=== PATIENT | male | born 1965 | race Caucasian/White ===

== ENCOUNTER 2019-07-28 08:13 | Emergency (ER) | payer MEDICAID ==
[~2019-07-28] VITALS: Ht 152.4 cm; Wt 80.0 kg
[2019-07-28 08:30] VITALS: BP 108/90
[2019-07-28] MEDS ORDERED: ROBCFL PO (09:17)
[2019-07-28] MEDS ORDERED: ALBU8HFA PO (09:17)
== END 2019-07-28 09:29 | disposition home or self-care (01) ==
LOC: ER 08:14
DX: J06.9 Acute upper respiratory infection, unspecified (principal); R09.82 Postnasal drip; Z87.891 Personal history of nicotine dependence; Z59.0 Homelessness
CPT/HCPCS: 99283

== ENCOUNTER 2019-08-08 09:59 | Emergency (ER) | payer MEDICAID ==
[~2019-08-08] VITALS: Ht 167.6 cm; Wt 81.5 kg
[~2019-08-08 09:59] MED LIST: ALBU8HFA PO; ROBCFL PO
[2019-08-08 10:03] VITALS: BP 119/75
[2019-08-08] MEDS ORDERED: ALBU8.5H8 IH (10:41)
[2019-08-08] MEDS ORDERED: BENZ-16 PO (10:41)
[2019-08-08] MEDS ORDERED: AMOX-422 PO (10:41)
[2019-08-08] MEDS ORDERED: PRED20TA PO (10:41)
== END 2019-08-08 10:47 | disposition home or self-care (01) ==
LOC: ER 09:59
DX: J20.9 Acute bronchitis, unspecified (principal); R51 Headache; R05 Cough; R09.3 Abnormal sputum; Z59.0 Homelessness; Z79.2 Long term (current) use of antibiotics; Z79.52 Long term (current) use of systemic steroids; Z79.899 Other long term (current) drug therapy
CPT/HCPCS: 99283